=== PATIENT | male | born 1955 | race Caucasian/White ===

== ENCOUNTER → 2024-04-13 08:44 | Outpatient (REF) | payer BC, MEDICARE, SELFPAY ==
[2024-04-13 11:40] LABS: HDL Cholesterol 31 mg/dl; Total Cholesterol 163 mg/dl (50-199)
[2024-04-13 11:54] LABS: LDL Cholesterol, Calculated 63 mg/dl; Triglyceride 349 mg/dl (10-149); Very Low Density Lipoprotein 69 mg/dl (0-30)
== END ==
LOC: RCS 08:44
PROVIDERS: ATTENDING PHYSICIAN Nurse Practitioner; FAMILY PHYSICIAN Family Medicine
DX: I71.20 Thoracic aortic aneurysm, without rupture, unspecified (principal); I34.2 Nonrheumatic mitral (valve) stenosis; E78.5 Hyperlipidemia, unspecified
CPT/HCPCS: 36415; 80061; 93306

== ENCOUNTER 2024-05-02 06:43 | Day surgery (SDC) | payer BC, MEDICARE, SELFPAY ==
[2024-04-23 08:47] VITALS: BMI 28.9
[2024-05-02 08:09] LABS: INR 2.39; PT 26.5 Sec (11.4-14.6)
== END 2024-05-02 09:12 | disposition home or self-care (01) ==
LOC: CATH 06:43
PROVIDERS: Nurse Practitioner; ATTENDING PHYSICIAN Student in an Organized Health Care Education/Training Program; FAMILY PHYSICIAN Family Medicine
DX: I08.1 Rheumatic disorders of both mitral and tricuspid valves (principal); I25.10 Atherosclerotic heart disease of native coronary artery without angina pectoris; I25.5 Ischemic cardiomyopathy; I10 Essential (primary) hypertension; E78.5 Hyperlipidemia, unspecified; M10.9 Gout, unspecified; Z95.1 Presence of aortocoronary bypass graft; Z87.891 Personal history of nicotine dependence; Z86.718 Personal history of other venous thrombosis and embolism; Z82.49 Family history of ischemic heart disease and other diseases of the circulatory system; Z79.01 Long term (current) use of anticoagulants
CPT/HCPCS: 93312; 93320; 93325; 85610; 93005

== ENCOUNTER → 2024-08-17 07:28 | Outpatient (REF) | payer BC, MEDICARE, SELFPAY | LOC: RCS 07:28 | PROVIDERS: ATTENDING PHYSICIAN Student in an Organized Health Care Education/Training Program; FAMILY PHYSICIAN Family Medicine | DX: I25.10 Atherosclerotic heart disease of native coronary artery without angina pectoris (principal) | CPT/HCPCS: 93306 ==

== ENCOUNTER → 2024-11-12 08:22 | Outpatient (REF) | payer BC, MEDICARE, SELFPAY | LOC: RCS 08:22 | PROVIDERS: ATTENDING PHYSICIAN Student in an Organized Health Care Education/Training Program; FAMILY PHYSICIAN Family Medicine | DX: I34.2 Nonrheumatic mitral (valve) stenosis (principal); I25.10 Atherosclerotic heart disease of native coronary artery without angina pectoris; I35.0 Nonrheumatic aortic (valve) stenosis | CPT/HCPCS: 93017; 93350; Q9957 ==